=== PATIENT | female | born 1935 | race Caucasian/White ===

== ENCOUNTER 2017-03-07 07:55 | Inpatient (IN) | payer MEDICARE, BC ==
[~2017-03-07] VITALS: Ht 165.1 cm; Wt 45.4 kg
--- NOTE | 2017-03-07 08:10 | NUR ---
[facility] AUD[facility] WHEEZING X LAST NIGHT SATING 88%-90%. MD AT BS FOR EVAL. RT AT BS. PT AAOX3. IV ACCESS LAC 20G MEDICAL STAFF MANAGER. SAFETY AND COMFORT MEASURES PROVIDED. WILL MONITOR.
--- NOTE | 2017-03-07 08:12 | NUR ---
RT AT BS FOR BREATHING TX. PT MEDICATED ORDERED.
--- NOTE | 2017-03-07 08:25 | NUR ---
TRUCK CRANE OPERATOR HELPER AT FOR BLOOD DRAW.
--- NOTE | 2017-03-07 08:35 | NUR ---
PT ASSISTED TO THE BED HUNTER REQUESTED FOR URINE SAMPLE ORDER. PENDING URINE SAMPLE.
[2017-03-07 08:54] LABS: BASOPHILS % (AUTO) 0.5 % (0.0-2.0); EOSINOPHILS # (AUTO) 0.1 /CMM (0.0-0.7); EOSINOPHILS % (AUTO) 1.3 % (0.0-6.0); HEMATOCRIT 42 % (33-45); HEMOGLOBIN 14.2 g/dL (11.5-14.8); LYMPHOCYTES # (AUTO) 1.5 /CMM (0.8-4.8); LYMPHOCYTES % (AUTO) 25.4 % (20.0-44.0); MEAN CORPUSCULAR HEMOGLOBIN 32 PG (26.0-33.0); MEAN CORPUSCULAR HGB CONC 34 g/dl (31.0-36.0); MEAN CORPUSCULAR VOLUME 96 fL (82-100); MONOCYTES # (AUTO) 0.4 /CMM (0.1-1.30); MONOCYTES % (AUTO) 6.3 % (2.0-12.0); NEUTROPHILS % (AUTO) 66.5 % (43.0-81.0); PLATELET COUNT (AUTO) 208 /CMM (150-450); RDW COEFFICIENT OF VARIATION 15.6 (11.5-15.0); RED BLOOD CELL COUNT(AUTO) 4.43 MIL/uL (4.0-5.2); WHITE BLOOD COUNT (AUTO) 5.9 K/uL (4.3-11.0)
[2017-03-07 09:07] LABS: TROPONIN I 0.032 ng/mL (0.00-0.056)
--- NOTE | 2017-03-07 09:08 | NUR ---
URINE SHELBI OBTAINED, SENT.
[2017-03-07] MEDS ORDERED: ALBU8.5H2 INH (09:10)
[2017-03-07] MEDS ORDERED: ZIOPTAN 0.0015% RIGHTEYE (09:10)
[2017-03-07] MEDS ORDERED: IPRA12.9 IH (09:10)
[2017-03-07 09:13] LABS: CALCIUM, SERUM 8.9 mg/dL (8.5-10.1); CARBON DIOXIDE 30 mmol/L (21-32); CHLORIDE 106 mmol/L (98-107); CREATININE 0.7 mg/dL (0.6-1.3); GLUCOSE 173 mg/dL (74-106); POTASSIUM 4.3 mmol/L (3.5-5.1); SODIUM SERUM 144 mmol/L (136-145); UREA NITROGEN, BLOOD 10 mg/dL (7-18)
[2017-03-07 09:15] LABS: ALANINE AMINOTRANSFERASE 75 U/L (12-78); ALBUMIN 3.6 g/dL (3.4-5.0); ALKALINE PHOSPHATASE 91 U/L (46-116); ASPARTATE AMINOTRANSFERASE 56 U/L (15-37); B-TYPE NATRIURETIC PEPTIDE 8125 PG/ML (0-125); BILIRUBIN,DIRECT 0.2 mg/dL (0.0-0.2); BILIRUBIN,TOTAL 0.7 mg/dL (0.2-1.0); TOTAL PROTEIN, SERUM 6.6 g/dL (6.4-8.2)
--- NOTE | 2017-03-07 09:22 | NUR ---
REPORT GIVEN TO DERECK RN FOR TELE ROOM 117.
[2017-03-07 09:31] LABS: APPEARANCE,URINE SL CLOUDY (CLEAR); BILIRUBIN,URINE NEGATIVE (NEGATIVE); BLOOD, URINE 1+ Ery/uL (NEGATIVE); COLOR,URINE YELLOW (YELLOW); KETONES,URINE NEGATIVE (NEGATIVE); LEUKOCYTE ESTERASE ,URINE NEGATIVE (NEGATIVE); NITRITE, URINE NEGATIVE (NEGATIVE); PROTEIN,URINE 1+ mg/dl (NEGATIVE); UGLUCOSE NEGATIVE (NEGATIVE); UROBILINOGEN,URINE 0.2 EU/dL (0.2)
[2017-03-07 09:37] LABS: BACTERIA,URINE Rare /HPF (None Seen); SQUAMOUS EPITHELIAL CELL,UR Few /HPF (None Seen); WBC,URINE 0-2 /HPF (0-3)
[2017-03-07 09:49] LABS: INR 1.02 (0.87-1.13); PROTHROMBIN TIME 10.9 SECS (9.5-12.7)
[2017-03-07 10:45] VITALS: BP 127/80
--- NOTE | 2017-03-07 10:45 | NUR ---
JALEEL/CLINICAL SAFETY MANAGER NOTE RECEIVED PT FROM ER VIA [place], RECEIVED REPORT FROM YOJANA LAICEA. PT ALERT, AWAKE, ORIENTED TO PERSON, PLACE AND TIME. PT ON 2 LITERS 02 VIA NASAL CANULA, NO ACUTE DISTRESS NOTED, SOB SUBSIDED. O2 SAT 94% ON MONITOR. PT ON MONITOR, SINUS WITH OCCASIONAL PVC'S. PT ACCOMPANIED BY [id number] AND . BELONGINGS CHECKED. LEFT NOTED TO HAVE LEFT AC PIV, PATENT AND INTACT, NO S/S OF INFECTION OR INFILTRATION NOTED. PT ABLE TO AMBULATE WITH ASSIST. BED PUT IN LOW POSITION, SIDE RAILS UP, CALL LIGHT WITHIN REACH. WILL CONTINUE TO MONITOR AND CARE. Addendum: 03/07/17 at 1615 by TARYN OLIVAS RN SKIN INTACT, SACRAL REDNESS NOTED. PHOTO TAKEN AND PLACED IN CHART. PT MOVES SELF IN BED.
[2017-03-07 16:00] VITALS: BP 118/67
--- NOTE | 2017-03-07 19:05 | NUR ---
JALEEL RN OPENING NOTES RECEIVED REPORT FROM AM RN. PATIENT A/A/O X3-4, ABLE TO MAKE NEEDS KNOWN. BREATHING EVEN AND UNLABORED, ON O2 2L VIA NC, TOLERATING WELL. O2 SAT @ 92-93%. DENIES SOB OR DIFFICULTY BREATHING. ON TELE SINUS RHYTHM W/ BBB, DENIES CHEST PAIN OR DISCOMFORT. LEFT AC IV #20 INTACT AND PATENT W/ DRESSING CDI, SALINE LOCK. DENIES ANY PAIN OR DISCOMFORT @ THIS TIME. SAFETY MEASURES IN PLACE W/ SIDE RAILS UP, BED LOCKED IN LOWEST POSITION, CALL LIGHT WITHIN REACH. WILL CONTINUE TO MONITOR.
--- NOTE | 2017-03-07 19:07 | NUR ---
ICU/RN ENDING NOTES,AM REPORT WILL BE ENDORSED TO NIGHT NURSE FOR CONTINUATION OF CARE. PT ON 2LITERS NASAL CANULA, TOLERATING WELL, NO RESPIRATORY DISTRESS NOTED. PT RESTING IN BED, AAOX4. ALL NEEDS MET, SAFETY MEASURES TAKEN, BED IN LOW POSITION, SIDE RAILS UP, CALL LIGHT WITHIN REACH.
[2017-03-07 20:00] VITALS: BP 127/59
[2017-03-08] VITALS: BP 117/61
[2017-03-08 04:00] VITALS: BP 117/67
[2017-03-08 07:32] LABS: BASOPHILS % (AUTO) 0.2 % (0.0-2.0); HEMATOCRIT 44 % (33-45); HEMOGLOBIN 14.5 g/dL (11.5-14.8); LYMPHOCYTES # (AUTO) 0.9 /CMM (0.8-4.8); LYMPHOCYTES % (AUTO) 8.8 % (20.0-44.0); MEAN CORPUSCULAR HEMOGLOBIN 32 PG (26.0-33.0); MEAN CORPUSCULAR HGB CONC 33 g/dl (31.0-36.0); MEAN CORPUSCULAR VOLUME 96 fL (82-100); MONOCYTES # (AUTO) 0.5 /CMM (0.1-1.30); MONOCYTES % (AUTO) 4.4 % (2.0-12.0); NEUTROPHILS # (AUTO) 9.3 /CMM (1.8-8.9); NEUTROPHILS % (AUTO) 86.6 % (43.0-81.0); PLATELET COUNT (AUTO) 216 /CMM (150-450); RDW COEFFICIENT OF VARIATION 15.3 (11.5-15.0); RED BLOOD CELL COUNT(AUTO) 4.57 MIL/uL (4.0-5.2); WHITE BLOOD COUNT (AUTO) 10.7 K/uL (4.3-11.0)
[2017-03-08 07:47] LABS: CHOLESTEROL 151 mg/dL (<200); HDL CHOLESTEROL 86 mg/dL (40-60); LDL 57 mg/dL (0-99); THYROID STIMULATING HORMONE 1.132 uIU/mL (0.358-3.74); TRIGLYCERIDES 48 mg/dL (30-150)
[2017-03-08 07:50] LABS: CALCIUM, SERUM 8.9 mg/dL (8.5-10.1); CARBON DIOXIDE 29 mmol/L (21-32); CHLORIDE 104 mmol/L (98-107); CREATININE 0.9 mg/dL (0.6-1.3); GLUCOSE 118 mg/dL (74-106); MAGNESIUM 2.2 mg/dL (1.8-2.4); PHOSPHORUS 4.8 mg/dL (2.5-4.9); POTASSIUM 4.2 mmol/L (3.5-5.1); SODIUM SERUM 143 mmol/L (136-145); UREA NITROGEN, BLOOD 19 mg/dL (7-18)
[2017-03-08 08:00] VITALS: BP 136/96
[2017-03-08 12:00] VITALS: BP 117/69
--- NOTE | 2017-03-08 15:04 | NUR ---
PTS DAUGHTER BROUGHT HOME MEDICATION WYATTOPTNICKY SENT TO PHARMACY
[2017-03-08 16:00] VITALS: BP 110/61
--- NOTE | 2017-03-08 19:33 | NUR ---
JALEEL RN OPENING NOTES: RECEIVED PATIENT ON BED, AWAKE ALOX3. ON O2 VIA NC AT 3LPM, WITH COMPLAINTS OF DIFFICULTY BREATHING AT THIS TIME "BUT OTHERWISE IM OK" PER PATIENT. PATIENT SATURATING 91% AT THIS TIME, AND SINUS RHYTHM ON THE MONITOR WITH BBB; HR AT 96 BPM. NO COMPLAINTS OF PAIN. IV ACCESS ON LEFT AC G20 KEPT SL AT THIS TIME. CALL LIGHT IN REACH. BED ALARM, ON SAFETY MEASURES ENSURED AT ALL TIMES. ASPIRATION PRECAUTIONS ENSURED. CONTINUOUSLY MONITORED.
[2017-03-08 20:00] VITALS: BP_SYST 130; BP_DIAS 57; BP_DIAS 75
--- NOTE | 2017-03-08 23:45 | NUR ---
RN NOTES; NOTED PATIENT TO BE SHORT OF BREATH WITH DIFFICULTY BREATHING USING ACCESSORY MUSCLES. SATURATING AT 81%. CALLED DR MARC FAYE RE PATIENT CARE; ORDERED STAT ABG; RELAYED RESULTS WITH ORDERS TO PUT PATIENT ON CONTINUOUS BIPAP. PT DNR/DNI SO STAYS JALEEL. PATIENT MADE AWARE. RT GRAHAM TO PUT PATIENT ON BIPAP. CONTINUOUSLY MONITORED FOR TOLERANCE.
[2017-03-09] VITALS: BP 136/87
[2017-03-09 00:48] LABS: ABG BASE EXCESS -3.4 mmol/L; ABG OXYGEN SATURATION 84.5 % (92.0-98.5); ABG PCO2 49.5 mmHg (35.0-45.0); ABG PH 7.296 (7.350-7.450); ABG PO2 56.3 mmHg (75.0-100.0); AaDO2 113.9 mmHg; COHb 0.8 % (0.5-1.5); MetHb 0.7 % (0.0-1.5); O2Hb 83.2 % (94.0-97.0); SITE, ABG Right Radial; VENT MODE, BG N/C
--- NOTE | 2017-03-09 00:55 | NUR ---
RT PT PLACED ON BIPAP WITH NOTED SETTING PER MD ORDERS POST ABG. PT TOLERATING BIPAP WELL AND SHOWING RESPIRATORY IMPROVEMENT. NO SOB OR DISTRESS NOTED. BIPAP ALARMS SET AND AUDIBLE. BIPAP CONNECTED TO RED OUTLET. WILL CONTINUE TO MONITOR . Addendum: 03/09/17 at 0058 by GRAHAM NGUYEN RT Amended: Links added.
[2017-03-09 04:00] VITALS: BP 126/74
[2017-03-09 06:29] LABS: HEMATOCRIT 40 % (33-45); HEMOGLOBIN 13.4 g/dL (11.5-14.8); LYMPHOCYTES # (AUTO) 0.4 /CMM (0.8-4.8); LYMPHOCYTES % (AUTO) 4.4 % (20.0-44.0); MEAN CORPUSCULAR HEMOGLOBIN 32 PG (26.0-33.0); MEAN CORPUSCULAR HGB CONC 33 g/dl (31.0-36.0); MEAN CORPUSCULAR VOLUME 96 fL (82-100); MONOCYTES # (AUTO) 0.3 /CMM (0.1-1.30); MONOCYTES % (AUTO) 3.7 % (2.0-12.0); NEUTROPHILS # (AUTO) 8.7 /CMM (1.8-8.9); NEUTROPHILS % (AUTO) 91.9 % (43.0-81.0); PLATELET COUNT (AUTO) 182 /CMM (150-450); RDW COEFFICIENT OF VARIATION 15.5 (11.5-15.0); RED BLOOD CELL COUNT(AUTO) 4.22 MIL/uL (4.0-5.2); WHITE BLOOD COUNT (AUTO) 9.5 K/uL (4.3-11.0)
[2017-03-09 06:36] LABS: CALCIUM, SERUM 8.8 mg/dL (8.5-10.1); CARBON DIOXIDE 32 mmol/L (21-32); CHLORIDE 102 mmol/L (98-107); CREATININE 0.8 mg/dL (0.6-1.3); GLUCOSE 126 mg/dL (74-106); POTASSIUM 4.8 mmol/L (3.5-5.1); SODIUM SERUM 139 mmol/L (136-145); UREA NITROGEN, BLOOD 21 mg/dL (7-18)
--- NOTE | 2017-03-09 07:00 | NUR ---
JALEEL INITIAL NOTE RECEIVED PT IN BED, AWAKE, A/O X4, ABLE TO MAKE NEEDS KNOWN, ABLE TO FOLLOW COMMANDS, PT IS ON BIPAP IPAP 15 EPAP 5 RATE 8 FIO2 40%, SATING WELL, NO S/S OF RESP. DISTRESS OR SOB NOTED AT THIS TIME, PT IS ON TELE MONITOR SHOWING SR @86 BPM, NO C/O OF CHEST PAIN OR DISCOMFORT AT THIS TIME, PT HAS MULTIPLE SKIN ISSUES NOTED, TREATMENTS CARRIED OUT, PT HAS RFA #20G,SL, C/D/I/PATENT, FLUSHING WELL, NO S/S OF INFECTION/ INFILTRATION NOTED AT THIS TIME, ALL SAFETY MEASURES IN PLACE AT ALL TIMES, CALL LIGHT WITHIN EASY REACH, ALL NEEDS MET, WILL MONITOR PT CLOSELY FOR CHANGES
--- NOTE | 2017-03-09 07:30 | NUR ---
RN NOTES; PATIENT REMAINS NOT IN APPARENT DISTRESS ON CONTINUOUS BIPAP STILL. REMAINS SR ON MONITOR. SAFETY MEASURES ENSURED. CONTINUOUSLY MONITORED. ENDORSED TO AM SHIFT RN
[2017-03-09 08:00] VITALS: BP 146/79
--- NOTE | 2017-03-09 09:00 | NUR ---
JALEEL NOTE PT REQUESTED TO REMOVE BIPAP, PT WAS PLACE ON 6L NC, PT EATING BREAKFAST AT THIS TIME, WHEN SHE BECAME SOB, O2 77%, PT WAS PLACED BACK ON BIPAP, O2 100%. WILL MONITOR CLOSELY
[2017-03-09 09:19] LABS: ABG BASE EXCESS 4.6 mmol/L; ABG PCO2 49.9 mmHg (35.0-45.0); ABG PH 7.403 (7.350-7.450); AaDO2 124.8 mmHg; COHb 0.6 % (0.5-1.5); MetHb 0.8 % (0.0-1.5); O2Hb 95.6 % (94.0-97.0); SITE, ABG Right Brachial
--- NOTE | 2017-03-09 09:23 | NUR ---
RT RECEIVED PT ON BiPAP WITH SETTINGS PER MD ORDER. PT AWAKE, ALERT AND STATES BEING COMFORTABLE. VENT PLUGGED INTO RED OUTLET. ALARMS SET PROPERLY. MONITORING PATIENT CLOSELY FOR ANY CHANGE OF CONDITION. NO SIGNS OF DISTRESS NOTED AT THIS TIME. FiO2 DECREASED FROM 40% TO 35% POST ABG RESULTS. SpO2 95-96%. WILL CONTINUE TO MONITOR THE PATIENT CLOSELY. RN NOTIFIED AND AWARE. Addendum: 03/09/17 at 1216 by NE PETERSON RT Amended: Links added.
[2017-03-09 12:00] VITALS: BP 133/82
--- NOTE | 2017-03-09 12:45 | NUR ---
JALEEL NOTE MANUALLY ADMINISTERED MEDICATIONS, SCANNER IS BROKEN, CALLED IT X 4
[2017-03-09 16:00] VITALS: BP 129/51
[2017-03-09 20:00] VITALS: BP 121/59
--- NOTE | 2017-03-09 20:00 | NUR ---
judy rn notes received pts on bed awake alert and responsive , on tele sr on the monitor , no sob no distress noted currently on bipap well tolerated by pts.all needs attended too . call light within reach. All due meds given as ordered .keep pts clean dry and comfortable. kept pts clean dry and comfortable, will continue to monitor pts.
--- NOTE | 2017-03-09 20:40 | NUR ---
judy rn notes rt at bedside , pts was put on nc at 2liters , sating 92-94% off bipap , will continue to monitor pts.
--- NOTE | 2017-03-09 20:45 | NUR ---
RT PT REMOVED FROM BIPAP AND PLACED ON 2L NC PER PT REQUEST. NO SOB OR DISTRESS NOTED OFF BIPAP. RN MADE AWARE. WILL CONTINUE TO MONITOR.
[2017-03-10] VITALS: BP 105/49
[2017-03-10 04:00] VITALS: BP 140/71
[2017-03-10 06:34] LABS: BASOPHILS % (AUTO) 0.1 % (0.0-2.0); HEMATOCRIT 40 % (33-45); HEMOGLOBIN 13.3 g/dL (11.5-14.8); LYMPHOCYTES # (AUTO) 0.5 /CMM (0.8-4.8); MEAN CORPUSCULAR HEMOGLOBIN 32 PG (26.0-33.0); MEAN CORPUSCULAR HGB CONC 33 g/dl (31.0-36.0); MEAN CORPUSCULAR VOLUME 96 fL (82-100); MONOCYTES # (AUTO) 0.4 /CMM (0.1-1.30); MONOCYTES % (AUTO) 5.6 % (2.0-12.0); NEUTROPHILS # (AUTO) 6.8 /CMM (1.8-8.9); NEUTROPHILS % (AUTO) 87.3 % (43.0-81.0); PLATELET COUNT (AUTO) 176 /CMM (150-450); RDW COEFFICIENT OF VARIATION 15.1 (11.5-15.0); RED BLOOD CELL COUNT(AUTO) 4.18 MIL/uL (4.0-5.2); WHITE BLOOD COUNT (AUTO) 7.8 K/uL (4.3-11.0)
--- NOTE | 2017-03-10 06:53 | NUR ---
JALEEL RN NOTES PTS REMAINS ON NC AT 2LITERS OF O2 WITH O2 SAT OF 92% , NO SIGNIFICANT CHANGE NOTED . V/S STABLE AFEBRILE . WILL ENDORSE TO RN DAY SHIFT FOR CONTINUITY OF CARE.
--- NOTE | 2017-03-10 07:10 | NUR ---
JALEEL RN INITIAL NOTES: REC'D PT AWAKE ON BED, A/O X3, C/O SOB WHILE ON O2 AT NC/2LPM, SATING AT 95%, REQUESTING FOR BREATHING TX. ON TELEMONITOR, SR W/ HR 70 BPM. HAS RFA G20, SL, FLUSHED, PATENT & INTACT W/ NO S/SX OF INFECTION/ INFILTRATION NOTED. PT IS AMBULATORY W/ STEADY GAIT, W/ BRP. PROVIDED COMFORT & SAFETY MEASURES. BED KEPT LOW & IN LOCKED POS. CALL LIGHT PLACED W/IN REACH. WILL INFORM RT FOR BREATHING TX. WILL CONTINUE TO MONITOR.
[2017-03-10 07:43] LABS: CALCIUM, SERUM 8.2 mg/dL (8.5-10.1); CARBON DIOXIDE 35 mmol/L (21-32); CHLORIDE 100 mmol/L (98-107); CREATININE 0.8 mg/dL (0.6-1.3); GLUCOSE 112 mg/dL (74-106); POTASSIUM 3.3 mmol/L (3.5-5.1); SODIUM SERUM 143 mmol/L (136-145); UREA NITROGEN, BLOOD 23 mg/dL (7-18)
[2017-03-10 08:00] VITALS: BP 128/68
[2017-03-10 09:47] LABS: ABG BASE EXCESS 9.6 mmol/L; ABG OXYGEN SATURATION 93.1 % (92.0-98.5); ABG PCO2 49.7 mmHg (35.0-45.0); ABG PH 7.465 (7.350-7.450); ABG PO2 67.9 mmHg (75.0-100.0); AaDO2 87.6 mmHg; COHb 0.8 % (0.5-1.5); O2Hb 91.4 % (94.0-97.0); SITE, ABG Left Radial; VENT MODE, BG 3/L NC
[2017-03-10 12:00] VITALS: BP 123/78
[2017-03-10 16:00] VITALS: BP 120/72
--- NOTE | 2017-03-10 18:31 | NUR ---
JALEEL RN CLOSING NOTES: NO ACUTE CHANGES NOTED W/IN SHIFT. PT TOLERATED O2 PER NC AT 3 LPM, NO SOB, SATURATING >92%. ON TELEMONITOR, STILL SR. RFA G20, KEPT PATENT & INTACT W/ NO S/SX OF INFECTION/ INFILTRATION NOTED. KEPT WELL RESTED. NEEDS ATTENDED. BREATHING TX GIVEN PER RT. ENCOURAGED DEEP BREATHING EXERCISES. FALL PRECAUTION OBSERVED. BED KEPT LOW & IN LOCKED POS. CALL LIGHT PLACED W/IN REACH. WILL ENDORSE TO PM RN FOR ROMELIA.
--- NOTE | 2017-03-10 19:30 | NUR ---
JALEEL RN INITIAL NOTE PT RECEIVED IN BED TALKING ON THE PHONE WITH GRANDDAUGHTER. A/O X3 AND ABLE TO MAKE NEEDS KNOWN. ON 3L OF O2 VIA NASAL CANNULA AND SATURATING 95%. TELE- SINUS RHYTHM 90 WITH OCCASIONAL PVC'S. BREATHING UNLABORED WITH NOTED WHEEZING AND DIMINISHED THROUGHOUT LUNG BAIRES. UNPRODUCTIVE COUGH NOTED. PT AMBULATORY AND ABLE TO AMBULATE TO THE RESTROOM. BED IN LOWEST POSITION AND LOCKED IN PLACE. ENCOURAGED PT TO USE CALL LIGHT FOR ASSISTANCE. WILL CONTINUE TO MONITOR.
[2017-03-10 20:00] VITALS: BP 126/69
[2017-03-11] VITALS: BP 115/64
[2017-03-11 04:00] VITALS: BP 120/66
--- NOTE | 2017-03-11 06:36 | NUR ---
JALEEL RN CLOSING NOTE PT REMAINED STABLE DURING SHIFT. ON 3L OF O2 AND WELL TOLERATED. NO SOB NOTED. NOTED WITH PRODUCTIVE COUGH. ASSISTED TO THE RESTROOM. ALL SAFETY MEASURES IN PLACE. ISOLATION PRECAUTIONS OBSERVED. IV SITE INTACT. BED LOCKED IN PLACE AND IN LOW POSITION. CALL LIGHT WITHIN REACH. ALL NEEDS ATTENDED TO PROMPTLY. WILL ENDORSE TO NEXT SHIFT FOR CONTINUITY OF CARE.
[2017-03-11 07:08] LABS: EOSINOPHILS % (AUTO) 0.1 % (0.0-6.0); HEMATOCRIT 42 % (33-45); HEMOGLOBIN 13.8 g/dL (11.5-14.8); LYMPHOCYTES # (AUTO) 0.4 /CMM (0.8-4.8); LYMPHOCYTES % (AUTO) 6.9 % (20.0-44.0); MEAN CORPUSCULAR HEMOGLOBIN 31 PG (26.0-33.0); MEAN CORPUSCULAR HGB CONC 33 g/dl (31.0-36.0); MEAN CORPUSCULAR VOLUME 96 fL (82-100); MONOCYTES # (AUTO) 0.4 /CMM (0.1-1.30); MONOCYTES % (AUTO) 6.8 % (2.0-12.0); NEUTROPHILS # (AUTO) 5.5 /CMM (1.8-8.9); NEUTROPHILS % (AUTO) 86.2 % (43.0-81.0); PLATELET COUNT (AUTO) 181 /CMM (150-450); RDW COEFFICIENT OF VARIATION 14.9 (11.5-15.0); RED BLOOD CELL COUNT(AUTO) 4.42 MIL/uL (4.0-5.2); WHITE BLOOD COUNT (AUTO) 6.4 K/uL (4.3-11.0)
[2017-03-11 07:35] LABS: CALCIUM, SERUM 8.2 mg/dL (8.5-10.1); CHLORIDE 101 mmol/L (98-107); CREATININE 0.6 mg/dL (0.6-1.3); GLUCOSE 101 mg/dL (74-106); POTASSIUM 3.4 mmol/L (3.5-5.1); SODIUM SERUM 144 mmol/L (136-145); UREA NITROGEN, BLOOD 23 mg/dL (7-18)
[2017-03-11 07:39] LABS: CARBON DIOXIDE 41 mmol/L (21-32)
[2017-03-11 08:00] VITALS: BP 134/85
--- NOTE | 2017-03-11 08:00 | NUR ---
TD/RN AM SHIFT INITIAL NOTES RECEIVED PT AWAKE IN BED, A/O X 3, DENIES ANY SYMPTOMS AT THIS TIME. NO ACUTE CHANGE OF CONDITION OR SOB NOTED. ON 3L HUMIDIFIED O2 VIA N/C SATURATING @ 96%, LUNG SOUNDS RHONCHI. ON TELE MONITORING WITH SINUS RHYTHM, HR 83. IV SITE FLUSHED, PATENT WITH NO S/S OF INFECTION, SL. PT IS COMFORTABLE. SCHEDULED AM MEDS TO BE GIVEN. CL WITHIN REACHED AND SAFETY MAINTAINED. ON GOING MONITORING.
[2017-03-11 12:00] VITALS: BP 120/76
--- NOTE | 2017-03-11 12:00 | NUR ---
TD/RN NOON ROUNDS NO CHANGE OF CONDITION. PT STILL NOTED WITH PRODUCTIVE COUGH, BUT SATURATING WELL, NO SOB, RESPIRATIONS EVEN AND UNLABORED. ON GOING MONITORING.
[2017-03-11 16:00] VITALS: BP 129/66
--- NOTE | 2017-03-11 16:00 | NUR ---
TD/RN AFTERNOON ROUNDS PT IS COMFORTABLE, NO COMPLAINT. MONITORING CONTINUED.
--- NOTE | 2017-03-11 19:21 | NUR ---
TELE1/RN AM SHIFT END NOTES NO ACUTE CHANGE OF CONDITION NOTED DURING THE SHIFT. ALL NEEDS MET. PT ENDORSED TO PM NURSE TO CONTINUE CARE. CL WITHIN REACHED AND SAFETY MAINTAINED.
[2017-03-11 20:00] VITALS: BP 134/68
--- NOTE | 2017-03-11 20:00 | NUR ---
CIRCULAR KNIFE MACHINE CUTTER NOTE PT IN BED LAYING IN BED A/O X 3, NO SOB NO DISTRESS OR DISCOMFORT NOTED. DENIES PAIN. ON O2 3L VIA N/C O2 SAT 95%. ON TELE SR WITH PVC, BBB AND TRIGEMINI HR 70. ALL NEEDS ATTENDED. SIDE RAILS UP X 2 AND CALL LIGHT WITHIN REACH. VSS. CONTINUE TO MONITOR HER.
[2017-03-12] VITALS (7 sets, daily range): BP systolic 112–123; BP diastolic 60–75
--- NOTE | 2017-03-12 06:54 | NUR ---
SCHOOL AGE PROGRAM ASSOCIATE NOTE PT IN BED ASLEEP, NO DISTRESS OR DISCOMFORT NOTED. MARGARET PAIN. ALL NEEDS ATTENDED. SIDE RAILS UP X 2 AND CALL LIGHT WITHIN REACH. WILL ENDORSE TO DAY SHIFT NURSE FOR CONTINUE TO CARE.
[2017-03-12 07:04] LABS: BASOPHILS % (AUTO) 0.3 % (0.0-2.0); EOSINOPHILS % (AUTO) 0.1 % (0.0-6.0); HEMATOCRIT 45 % (33-45); HEMOGLOBIN 14.9 g/dL (11.5-14.8); LYMPHOCYTES # (AUTO) 0.7 /CMM (0.8-4.8); LYMPHOCYTES % (AUTO) 9.5 % (20.0-44.0); MEAN CORPUSCULAR HEMOGLOBIN 32 PG (26.0-33.0); MEAN CORPUSCULAR HGB CONC 33 g/dl (31.0-36.0); MEAN CORPUSCULAR VOLUME 96 fL (82-100); MONOCYTES # (AUTO) 0.5 /CMM (0.1-1.30); MONOCYTES % (AUTO) 6.5 % (2.0-12.0); NEUTROPHILS # (AUTO) 6.1 /CMM (1.8-8.9); NEUTROPHILS % (AUTO) 83.6 % (43.0-81.0); PLATELET COUNT (AUTO) 196 /CMM (150-450); RDW COEFFICIENT OF VARIATION 15.1 (11.5-15.0); RED BLOOD CELL COUNT(AUTO) 4.68 MIL/uL (4.0-5.2); WHITE BLOOD COUNT (AUTO) 7.3 K/uL (4.3-11.0)
[2017-03-12 07:15] LABS: CALCIUM, SERUM 8.5 mg/dL (8.5-10.1); CARBON DIOXIDE 37 mmol/L (21-32); CHLORIDE 99 mmol/L (98-107); CREATININE 0.8 mg/dL (0.6-1.3); GLUCOSE 101 mg/dL (74-106); POTASSIUM 3.1 mmol/L (3.5-5.1); SODIUM SERUM 143 mmol/L (136-145); UREA NITROGEN, BLOOD 26 mg/dL (7-18)
--- NOTE | 2017-03-12 07:30 | NUR ---
initial note pleasant 81 yo female, denying discomfort. breathing even and unlabored. tele monitor reading heart rate 85 with PVC, BBB and trigeminal. patient is ambulatory with steady gait, BRP with strict I+O. able to move all extremities and make needs known. discussed plan of care and she verbalized understanding. LFA IV patent, no s/s of infection or infiltration. call light in reach
--- NOTE | 2017-03-12 16:00 | NUR ---
RN note Dietitian and ORE SMELTER Cy saw and examined patient and chart and agreed on boost supplement BID- verbal order input and read back, confirmed. patient agrees on nutritional supplement.
--- NOTE | 2017-03-12 18:56 | NUR ---
END OF SHIFT RESTING IN BED COMFORTABLE. BREATHING AND O2 SAT WNL. PATIENT APPEARING BETTER/ VERBALIZING FEELING BETTER. DISCUSSED PLAN OF CARE WITH MD, POSSIBLE D/C TO [facility] TOMORROW. INFORMED PRE KINDERGARTEN TEACHER NURSE. CALL LIGHT IN REACH.
[2017-03-13] VITALS: BP 132/62
[2017-03-13 04:00] VITALS: BP 125/68
[2017-03-13 07:02] LABS: CALCIUM, SERUM 8.4 mg/dL (8.5-10.1); CARBON DIOXIDE 34 mmol/L (21-32); CHLORIDE 103 mmol/L (98-107); CREATININE 0.8 mg/dL (0.6-1.3); GLUCOSE 89 mg/dL (74-106); POTASSIUM 3.4 mmol/L (3.5-5.1); SODIUM SERUM 142 mmol/L (136-145); UREA NITROGEN, BLOOD 27 mg/dL (7-18)
--- NOTE | 2017-03-13 07:40 | NUR ---
RN NOTES REPORT REC'V FROM NOC RN. PT A&OX4. NO LABORED RESP. 95% O2 SATS 3LNC. TELE SR PVC. SL PIV RFA 20G. K=3.4(L). CALL LIGHT IN REACH. BED IN LOW LOCKED POSITION. WILL CONT TO MONITOR CLOSELY.
[2017-03-13 08:00] VITALS: BP 138/84
[2017-03-13 10:31] VITALS: BP 138/84
--- NOTE | 2017-03-13 12:00 | NUR ---
RN NOTES PT RESTING COMFORTABLY. NO RESP DISTRESS. 2LNC 100% O2SATS. BED IN LOW LOCKED POSITION. CALL LIGHT IN REACH. WILL CONT TO MONITOR CLOSELY.
[2017-03-13] MEDS ORDERED: FLUT1DIS3 INH (14:20)
[2017-03-13] MEDS ORDERED: BISO5TAB7 PO (14:20)
[2017-03-13] MEDS ORDERED: FURO40TA5 PO (14:20)
[2017-03-13] MEDS ORDERED: PRED20TA PO ×2 (14:20)
[2017-03-13] MEDS ORDERED: ASPI-991 PO (14:20)
[2017-03-13] MEDS ORDERED: PRED5TAB48 PO (14:20)
[2017-03-13] MEDS ORDERED: IPRA3AMP IH (14:31)
--- NOTE | 2017-03-13 15:58 | NUR ---
RN NOTES IV D/C'D. O2 TANK PROVIDED Pt. DTR IN LAW WHEELED PT IN W/C TO PVT CAR ON WAY TO [facility]. ACCOMPANIED BY PATRICK CABRERA. NO RESP DISTRESS AT PRESENT. SEE DISCHARGE INSTRUCTIONS.
== END 2017-03-13 15:56 | DRG 291 ==
LOC: ER 07:57 → TELE-TD 09:06 → TELE1 03-11 18:59 → MEDSG1 03-13 08:45
PROVIDERS: ADMIT Nurse Practitioner Acute Care; ATTEND Nurse Practitioner Acute Care
PROC: 5A09357 Assistance with Respiratory Ventilation, Less than 24 Consecutive Hours, Continuous Positive Airway Pressure (ICD-10-PCS; principal; 2017-03-09)
DX: I11.0 Hypertensive heart disease with heart failure (principal); J96.21 Acute and chronic respiratory failure with hypoxia; E87.3 Alkalosis; J96.22 Acute and chronic respiratory failure with hypercapnia; J44.1 Chronic obstructive pulmonary disease with (acute) exacerbation; I50.23 Acute on chronic systolic (congestive) heart failure; I42.9 Cardiomyopathy, unspecified; F17.210 Nicotine dependence, cigarettes, uncomplicated; E87.6 Hypokalemia; H40.9 Unspecified glaucoma; K57.90 Diverticulosis of intestine, part unspecified, without perforation or abscess without bleeding; R73.9 Hyperglycemia, unspecified; I27.2 Other secondary pulmonary hypertension; I34.0 Nonrheumatic mitral (valve) insufficiency; Z88.2 Allergy status to sulfonamides
CPT/HCPCS: 36415; 36600; 71010-TC; 80048-TC; 80061-TC; 80076-TC; 81000-TC; 82803-TC; 83605-TC; 83735-TC; 83880; 84100-TC; 84443-TC; 84484-TC; 85025-TC; 85730-TC; 87040-TC; 87081-TC; 93307-TC; 93970-TC; 94660; 94799-TC; A4606; J1120; J1644; J1940; J2920; J2930; J3475; Z7610

== ENCOUNTER 2017-03-28 10:03 | Outpatient (CLI) | payer MEDICARE, BC ==
[~2017-03-28 10:03] MED LIST: ALBU8.5H2 INH; ASPI-991 PO; BISO5TAB7 PO; FLUT1DIS3 INH; FURO40TA5 PO; IPRA12.9 IH; IPRA3AMP IH; PRED20TA PO; PRED5TAB48 PO; ZIOPTAN 0.0015% RIGHTEYE
[2017-03-28 11:02] LABS: ALANINE AMINOTRANSFERASE 33 U/L (12-78); ALBUMIN 3.6 g/dL (3.4-5.0); ALKALINE PHOSPHATASE 77 U/L (46-116); ASPARTATE AMINOTRANSFERASE 19 U/L (15-37); B-TYPE NATRIURETIC PEPTIDE 4907 PG/ML (0-125); BILIRUBIN,TOTAL 0.6 mg/dL (0.2-1.0); CALCIUM, SERUM 8.6 mg/dL (8.5-10.1); CARBON DIOXIDE 37 mmol/L (21-32); CHLORIDE 100 mmol/L (98-107); CREATININE 0.7 mg/dL (0.6-1.3); GLUCOSE 76 mg/dL (74-106); POTASSIUM 3.4 mmol/L (3.5-5.1); SODIUM SERUM 141 mmol/L (136-145); TOTAL PROTEIN, SERUM 6.6 g/dL (6.4-8.2); UREA NITROGEN, BLOOD 13 mg/dL (7-18)
== END 2017-03-28 23:59 | disposition home or self-care (01) ==
LOC: LAB 10:03
PROVIDERS: ATTEND Internal Medicine Interventional Cardiology
DX: I50.9 Heart failure, unspecified (principal)
CPT/HCPCS: 36415; 80053-TC; 83880

== ENCOUNTER 2017-05-09 10:15 | Outpatient (CLI) | payer MEDICARE, BC ==
[2017-05-09] MEDS ORDERED: METOPROLOL TARTRATE INJ 5 MG/5 ML AMPUL ONE (10:55)
[2017-05-09 11:22] LABS: BASOPHILS # (AUTO) 0.1 /CMM (0.0-0.2); EOSINOPHILS # (AUTO) 0.2 /CMM (0.0-0.7); EOSINOPHILS % (AUTO) 2.5 % (0.0-6.0); HEMATOCRIT 41 % (33-45); HEMOGLOBIN 13.7 g/dL (11.5-14.8); LYMPHOCYTES # (AUTO) 1.4 /CMM (0.8-4.8); LYMPHOCYTES % (AUTO) 18.9 % (20.0-44.0); MEAN CORPUSCULAR HEMOGLOBIN 32 PG (26.0-33.0); MEAN CORPUSCULAR HGB CONC 33 g/dl (31.0-36.0); MEAN CORPUSCULAR VOLUME 96 fL (82-100); MONOCYTES # (AUTO) 0.4 /CMM (0.1-1.30); MONOCYTES % (AUTO) 5.2 % (2.0-12.0); NEUTROPHILS # (AUTO) 5.4 /CMM (1.8-8.9); NEUTROPHILS % (AUTO) 72.4 % (43.0-81.0); PLATELET COUNT (AUTO) 269 /CMM (150-450); RED BLOOD CELL COUNT(AUTO) 4.31 MIL/uL (4.0-5.2); WHITE BLOOD COUNT (AUTO) 7.5 K/uL (4.3-11.0)
[2017-05-09] MEDS ORDERED: IV NS 0.9% 250 ML IV ONE (11:25)
[2017-05-09] MEDS ORDERED: IOHEXOL-350 100 ML VIAL IV ONE (11:25)
[2017-05-09] MEDS ORDERED: CT SWABBABLE VALVE TRANS SET 1 EA INFUS.SET MC ONE (11:25)
[2017-05-09] MEDS ORDERED: NITROGLYCERIN 0.4 MG/TAB BOTTLE ONE (11:42)
== END 2017-05-09 12:30 ==
LOC: CT 10:15
PROVIDERS: ATTEND Internal Medicine Interventional Cardiology
DX: I42.9 Cardiomyopathy, unspecified (principal)
CPT/HCPCS: 36415; 75574; 85025; J3490; J7050; Q9967